=== PATIENT | male | born 1950 | race Caucasian/White ===

== ENCOUNTER 2022-10-06 09:22 | Emergency (ER) | payer OTHER ==
[~2022-10-06] VITALS: Ht 170.2 cm; Wt 113.4 kg
[2022-10-06] MEDS ORDERED: ADVAIR 250-501 EACH INH (10:11)
[2022-10-06] MEDS ORDERED: ALBUTEROL1.25 MG/3 INH (10:11)
== END 2022-10-06 11:16 | disposition home or self-care (01) ==
LOC: ED 09:22
DX: J10.1 Influenza due to other identified influenza virus with other respiratory manifestations (principal); Z20.822 Contact with and (suspected) exposure to COVID-19; J45.909 Unspecified asthma, uncomplicated; I50.9 Heart failure, unspecified; Z88.0 Allergy status to penicillin; Z88.5 Allergy status to narcotic agent; Z79.899 Other long term (current) drug therapy
CPT/HCPCS: 71045; 87502; 99283-25; C9803; U0003

== ENCOUNTER 2024-06-19 08:19 | Emergency (ER) | payer OTHER ==
[~2024-06-19] VITALS: Ht 170.2 cm; Wt 111.8 kg
[~2024-06-19 08:19] MED LIST: ADVAIR 250-501 EACH INH; ALBUTEROL1.25 MG/3 INH
[2024-06-19] MEDS ORDERED: MELATONIN1 MG PO (08:25)
[2024-06-19] MEDS ORDERED: FLUOXETINE HCL20 M1 PO (08:25)
[2024-06-19] MEDS ORDERED: CELEBREX50 MG PO (08:26)
[2024-06-19] MEDS ORDERED: NORVASC10 MG PO (08:26)
[2024-06-19 08:41] LABS: BASOPHILS 0.7 % (0-2); EOSINOPHILS 0.1 % (0-6); HEMOGLOBIN 14.5 g/dL (12.0-18.0); LYMPHOCYTES 12.8 % (24-44); MCH 29.4 (27-36); MCHC 32.9 g/dl (30-36); MCV 89.4 fl (81-99); MONOCYTES 4.7 % (0-12); NEUTROPHILS 81.7 % (39-80); PLATELET COUNT 212 K/uL (140-440); RBC 4.92 M/ul (4.3-5.7); RDW 14.3 (10.5-15.0)
[2024-06-19 08:52] LABS: ALBUMIN 3.7 g/dL (3.4-5.0); ALBUMIN/GLOBULIN RATIO 0.88 (1.1-2.4); ANION GAP 15.1 (7-21); BILIRUBIN, TOTAL 0.8 ng/dL (0.2-1.0); BUN/CREATININE RATIO 11.16 (6.0-28.6); CALCIUM 9.3 mg/dL (8.5-10.1); CREATININE, SERUM 2.24 mg/dL (0.70-1.30); POTASSIUM 4.1 mmol/L (3.5-5.1); PROTEIN, TOTAL 7.9 g/dL (6.4-8.2)
[2024-06-19 09:19] LABS: BILIRUBIN, URINE NEGATIVE (negative); BLOOD/HGB, URINE NEGATIVE (Negative); KETONE, URINE TRACE (Negative); LEUK ESTERASE, URINE NEGATIVE (negative); NITRITE, URINE NEGATIVE (negative); PH, URINE 5.5 (5-7)
[2024-06-19] MEDS ORDERED: SODIUM CHLORIDE 0.9% 1,000 ML IV PRN (09:30)
[2024-06-19 09:33] LABS: BACTERIA, URINE 2+ /hpf (negative); RED BLOOD CELLS, URINE 0-1 /hpf (0-5)
[2024-06-19 09:34] LABS: CASTS, URINE NONE SEEN \\lpf; COLLECTION TYPE, URINE CLEAN CATCH; REFLEX CULTURE, URINE No (No)
[2024-06-19 09:38] LABS: CRYSTALS, URINE NONE SEEN (0-1+)
[2024-06-19 10:28] VITALS: BP 96/71
--- NOTE | 2024-06-20 10:42 | EKG ---
[facility] [address] [facility] [place], [place] [address] Signed Normal sinus rhythm Normal ECG No previous ECGs available Confirmed by Olga Ferrell MD ([id number]) on 06/20/2024 10:42:47 AM Electronically Signed By: OLGA FERRELL 06/20/241041 PATIENT NAME: SAYDA BROOKS JORGE ALBERTO Electrocardiogram DATE OF : 48 PHYSICIAN: OLGA FERRELL REPORT #: [id number] REPORT IS CONFIDENTIAL AND NOT TO BE RELEASED WITHOUT AUTHORIZATION
[2024-06-20] MEDS ORDERED: METRONIDAZOLE500 MG PO (14:05)
[2024-06-20] MEDS ORDERED: LEVOFLOXACIN250 MG PO (14:05)
== END 2024-06-19 10:31 | disposition other institution, planned readmission (95) ==
LOC: ED 08:19
PROVIDERS: Emergency Medicine
DX: R07.9 Chest pain, unspecified (principal); I95.9 Hypotension, unspecified; I11.0 Hypertensive heart disease with heart failure; I50.9 Heart failure, unspecified; I25.2 Old myocardial infarction; Z88.0 Allergy status to penicillin; Z88.5 Allergy status to narcotic agent; Z79.899 Other long term (current) drug therapy
CPT/HCPCS: 36415; 71045; 80053; 81001; 84484; 85025; 93005; 93010; 99285-25; J7030

== ENCOUNTER 2025-08-07 09:23 | Emergency (ER) | payer OTHER ==
[~2025-08-07] VITALS: Ht 170.2 cm; Wt 102.0 kg
[~2025-08-07 09:23] MED LIST changes: +CELEBREX50 MG PO; +FLUOXETINE HCL20 M1 PO; +LEVOFLOXACIN250 MG PO; +MELATONIN1 MG PO; +METRONIDAZOLE500 MG PO; +NORVASC10 MG PO
[2025-08-07 12:34] VITALS: BP 153/01
== END 2025-08-07 12:35 | disposition other institution, planned readmission (95) ==
LOC: ED 09:23
DX: S32.059A Unspecified fracture of fifth lumbar vertebra, initial encounter for closed fracture (principal); I11.0 Hypertensive heart disease with heart failure; I50.9 Heart failure, unspecified; I25.2 Old myocardial infarction; W19.XXXA Unspecified fall, initial encounter; Z88.0 Allergy status to penicillin; Z88.5 Allergy status to narcotic agent; Z88.8 Allergy status to other drugs, medicaments and biological substances; Z79.899 Other long term (current) drug therapy
CPT/HCPCS: 72131; 99284-25

== ENCOUNTER 2025-08-27 15:14 | Emergency (ER) | payer OTHER ==
[~2025-08-27] VITALS: Ht 170.2 cm; Wt 104.6 kg
[2025-08-27 19:25] VITALS: BP 172/100
== END 2025-08-27 19:28 | disposition home or self-care (01) ==
LOC: ED 15:14
DX: S01.81XA Laceration without foreign body of other part of head, initial encounter (principal); Y29.XXXA Contact with blunt object, undetermined intent, initial encounter; I11.0 Hypertensive heart disease with heart failure; I50.9 Heart failure, unspecified; I25.2 Old myocardial infarction; J45.909 Unspecified asthma, uncomplicated; Z88.0 Allergy status to penicillin; Z88.5 Allergy status to narcotic agent; Z79.899 Other long term (current) drug therapy
CPT/HCPCS: 12011; 70450; 99283-25

== ENCOUNTER 2025-09-24 15:19 | Emergency (ER) | payer OTHER ==
[~2025-09-24] VITALS: Ht 170.2 cm; Wt 103.1 kg
[2025-09-24] MEDS ORDERED: SODIUM CHLORIDE 0.9% 1,000 ML IV ONE (15:45)
[2025-09-24 15:50] LABS: BASOPHILS 0.3 % (0.2-1.2); EOSINOPHILS 0.7 % (0.8-7.0); LYMPHOCYTES 29.1 % (21.8-53.1); MCH 30.0 PG (25.7-32.2); MCHC 33.1 g/dL (32.3-36.5); MCV 90.8 fL (79.0-92.2); MONOCYTES 11.1 % (5.3-12.2); NEUTROPHILS 56.2 % (34.0-67.9); RBC 4.13 M/uL (4.63-6.08)
[2025-09-24 16:06] LABS: ALT (SGPT) 15.0 U/L (14-59); AST (SGOT) 18.0 U/L (15-37); GLOMERULAR FILTRATION RATE,EST 61.0 mL/min (>60); PROTEIN, TOTAL 10.1 g/dL (6.4-8.2); UREA NITROGEN 19.0 mg/dL (7-18)
[2025-09-24 17:55] LABS: BLOOD/HGB, URINE NEGATIVE (Negative); KETONE, URINE NEGATIVE (Negative); LEUK ESTERASE, URINE NEGATIVE (negative); NITRITE, URINE NEGATIVE (negative)
[2025-09-24 18:55] VITALS: BP 181/117
== END 2025-09-24 18:55 | disposition home or self-care (01) ==
LOC: ED 15:19
PROVIDERS: Emergency Medicine
DX: R10.31 Right lower quadrant pain (principal); I11.0 Hypertensive heart disease with heart failure; I50.9 Heart failure, unspecified; J45.909 Unspecified asthma, uncomplicated; Z79.51 Long term (current) use of inhaled steroids; Z79.899 Other long term (current) drug therapy; Z88.0 Allergy status to penicillin; Z88.5 Allergy status to narcotic agent
CPT/HCPCS: 36415; 74177; 80053; 81003; 83690; 85025; 96361; 96374; 99284-25; J2405; J7030; Q9967

== ENCOUNTER 2025-10-21 13:16 | Emergency (ER) | payer OTHER ==
[~2025-10-21] VITALS: Ht 170.2 cm; Wt 98.2 kg
[2025-10-21 14:04] LABS: BASOPHILS 0.2 % (0.2-1.2); EOSINOPHILS 0.3 % (0.8-7.0); LYMPHOCYTES 31.5 % (21.8-53.1); MCH 30.4 PG (25.7-32.2); MCHC 32.9 g/dL (32.3-36.5); MCV 92.3 fL (79.0-92.2); MONOCYTES 12.9 % (5.3-12.2); NEUTROPHILS 53.2 % (34.0-67.9); RBC 4.31 M/uL (4.63-6.08)
[2025-10-21 14:09] LABS: BLOOD/HGB, URINE NEGATIVE (Negative); KETONE, URINE NEGATIVE (Negative); LEUK ESTERASE, URINE NEGATIVE (negative); NITRITE, URINE NEGATIVE (negative)
[2025-10-21] MEDS ORDERED: ALBUTEROL/IPRATROPIUM 3 ML NEB INH ONE (14:30)
[2025-10-21] MEDS ORDERED: LIDOCAINE HCL 4% 1 EACH PATCH TD ONE (14:30)
[2025-10-21] MEDS ORDERED: DEXAMETHASONE SOD PHOS 10 MG/ML VIAL IV ONE (14:30)
[2025-10-21] MEDS ORDERED: CYCLOBENZAPRINE HCL 10 MG TAB PO ONE (14:30)
[2025-10-21 14:45] LABS: ALT (SGPT) 14.0 U/L (14-59); AST (SGOT) 20.0 U/L (15-37); GLOMERULAR FILTRATION RATE,EST 45.0 mL/min (>60); PROTEIN, TOTAL 11.3 g/dL (6.4-8.2); UREA NITROGEN 24.0 mg/dL (7-18)
[2025-10-21] MEDS ORDERED: CYCLOBENZAPRINE10 MG PO (15:36)
[2025-10-21] MEDS ORDERED: IPRAT-ALBUT 0.5-3 ML INH (15:36)
[2025-10-21] MEDS ORDERED: NEURONTIN300 MG PO (15:36)
[2025-10-21] MEDS ORDERED: ASPERFLEX1 EACH TOP (15:36)
[2025-10-21 15:58] VITALS: BP 140/91
[2025-10-21] MEDS ORDERED: LIDOCAINE PATCH REMOVAL 1 EA TD SCH (21:00)
--- NOTE | 2025-10-22 12:07 | EKG ---
[facility] [address] [facility] [place] [address] Signed Sinus tachycardia Nonspecific ST abnormality Abnormal ECG No previous ECGs available Confirmed by Og Calderon DO ([id number]) on 10/22/2025 12:07:27 PM Electronically Signed By: OG CALDERON DO 10/22/25 1207 PATIENT NAME: SAYDA BROOKS JORGE ALBERTO Electrocardiogram DATE OF : 48 PHYSICIAN: OG CLADERON DO REPORT #: [id number] REPORT IS CONFIDENTIAL AND NOT TO BE RELEASED WITHOUT AUTHORIZATION
== END 2025-10-21 15:59 | disposition home or self-care (01) ==
LOC: ED 13:16
PROVIDERS: Emergency Medicine
DX: J44.9 Chronic obstructive pulmonary disease, unspecified (principal); I11.0 Hypertensive heart disease with heart failure; I50.9 Heart failure, unspecified; Z88.0 Allergy status to penicillin; Z88.5 Allergy status to narcotic agent
CPT/HCPCS: 36415; 71045; 80053; 81003; 83735; 83880; 84484; 85025; 93005; 93010; 94640; 96374; 96375; 99284-25; A9270; J1100; J2405